=== PATIENT | female | born 1965 | race Caucasian/White ===

== ENCOUNTER 2016-06-28 10:41 | Observation (INO) | payer OTHER ==
--- NOTE | ~2016-06-28 | OR ---
Unit #: [id number] #: [id number] Patient: MARIAJOSE MOYER [id number] [facility]. [place], [place] [address] [id number] MR#: [id number] NAME: MARIAJOSE MOYER ROOM: 47 Date of Procedure: 06/28/2016 Admission Date: 06/28/2016 Surgeon: Wiley Pritchett M.D. : 1965 Attending Physician: Wiley Pritchett M.D. OPERATIVE REPORT PREOPERATIVE DIAGNOSIS Hyperthyroidism. POSTOPERATIVE DIAGNOSIS Hyperthyroidism. PROCEDURE PERFORMED Total thyroidectomy. ANESTHESIA General endotracheal anesthesia. COMPLICATIONS There were none. FINDINGS Included a mildly enlarged thyroid. FLUIDS Per Anesthesia record. INDICATIONS FOR PROCEDURE This is a 51-year-old female with a long history of hyperthyroidism that has been unresponsive to medical measures. She presents today for total thyroidectomy. DESCRIPTION OF PROCEDURE The patient was placed supine on the operating table. Anesthesia was achieved by general endotracheal anesthesia. This was done by a NIM monitoring tube and her recurrent laryngeal nerves were monitored throughout the case. Incision was made in the low midline neck crease with a 15 blade. Dissection was carried down through the subcutaneous tissue and through the platysma to identify the strap muscles medially and SCMs laterally. A supra muscular flap was then elevated superiorly and inferiorly. Then an Clayton retractor was placed. Strap muscles were divided at the midline and the left thyroid lobe was dissected free from the overlying strap muscles. The superior pole was isolated first and then the superior pole vasculature was taken down and divided and ligated with focus Harmonic Scalpel. All lateral fascial tissue and parathyroid tissue was then carefully dissected free from the superior portion of the gland. Inferiorly, the middle thyroid vein and inferior thyroid artery were then also divided and ligated with focus Harmonic Scalpel. Again all Unit #: [id number] #: [id number] Patient: MARIAJOSE MOYER fascial and parathyroid tissue was then carefully removed from the lateral aspect of the gland. Recurrent laryngeal nerve was then identified and followed and dissected to its entirety into the larynx and this was easily stimulated after the dissection. All thyroid tissue was then elevated from off the trachea and the isthmus was also elevated. Attention then turned to the right side where essentially the same dissection was performed with again taking down the superior and inferior poles with focus Harmonic Scalpel. All lateral fascial and parathyroid tissue was then also removed from the lateral portion of the gland and then thyroid was then carefully elevated from off the recurrent laryngeal nerve, which was again identified and dissected to its location entrance into the larynx. Again this nerve on the right stimulated fine after dissection. The thyroid gland was sent for permanent specimen. The wound was irrigated. Several small bleeders were cauterized with bipolar cautery. A 10-Danish SMITH drain was placed and secured with 2-0 silk stitch. The wound was closed with 4-0 Vicryl interrupted stitch for the deep tissue and then 5-0 running subcuticular Prolene for the skin. Dressing was placed. The patient was awakened and transferred to recovery in stable condition. Dictated by... Zelalem Garcia/khalida TD: 06/30/2016 02:47 JOB #: [id number] OPERATIVE REPORT X Wiley Pritchett MD PROCEDURE OPERATIVE NOTE
[2016-06-28] MEDS ORDERED: LIPITOR20 MG PO (11:58)
[2016-06-28] MEDS ORDERED: METOPROLOL SUCC25 MG PO (11:59)
[2016-06-28] MEDS ORDERED: PAXIL10 MG PO (11:59)
[2016-06-28] MEDS ORDERED: METHIMAZOLE10 MG PO (12:00)
== END 2016-06-29 11:55 | disposition home or self-care (01) ==
LOC: CSUR 10:41 → CPACUOF 16:49 → C4C 20:22
DX: E05.00 Thyrotoxicosis with diffuse goiter without thyrotoxic crisis or storm (principal); E78.5 Hyperlipidemia, unspecified; F17.200 Nicotine dependence, unspecified, uncomplicated
CPT/HCPCS: 82310; 88307; G0378; J0131; J0330; J0690; J2250; J3010